=== PATIENT | female | born 1995 | race Caucasian/White ===

== ENCOUNTER 2025-06-23 17:59 | Inpatient (IN) | payer OTHER ==
[2025-06-23 18:58] VITALS: BMI 28.4
[2025-06-23] MEDS ORDERED: Tranexamic Acid 1,000 MG/10 ML VIAL IVP PRN (19:09)
[2025-06-23] MEDS ORDERED: Diphenoxylate HCl/Atropine Tablet PO PRN ×2 (19:09)
[2025-06-23] MEDS ORDERED: Ondansetron PF 4 MG/2 ML Vial IVP PRN ×4 (19:09→21:13)
[2025-06-23] MEDS ORDERED: Methylergonovine 0.2 MG/ML VIAL IM PRN (19:09)
[2025-06-23] MEDS ORDERED: Famotidine/PF 20 mg/2ml Vial SLOW IVP PRN (19:09)
[2025-06-23] MEDS ORDERED: hydrALAZINE 20 MG/ML VIAL SLOW IVP PRN ×2 (19:09→21:13)
[2025-06-23] MEDS ORDERED: Bicitra 30 ML UDCUP PO PRN (19:09)
[2025-06-23] MEDS ORDERED: Carboprost 250 MCG/ML AMP IM PRN (19:09)
[2025-06-23 19:15] LABS: Fetal Membranes Rupture RUPTURE DETECTED (No Rupture)
[2025-06-23] MEDS ORDERED: Azithromycin 500 MG in Sodium Chloride 0.9% 250 ML 250 ML IVPB SCH (19:15)
[2025-06-23] MEDS ORDERED: Oxytocin 30 units/NS 500 ML 500 ML IV SCH ×2 (19:15→21:15)
[2025-06-23 19:46] LABS: Hematocrit 33.2 % (34.9-44.5); Hemoglobin 11.2 g/dL (12.0-15.5); Mean Corpuscular Hemoglobin 27.9 pg (27.0-33.0); Mean Corpuscular Volume 82.8 fL (81.6-98.3); Platelet Count 192 10x3/uL (150-450); Red Blood Cell (RBC) Count 4.01 10x6/uL (3.90-5.03); White Blood Cell (WBC) Count 12.12 10x3/uL (3.5-10.5)
[2025-06-23] MEDS ORDERED: HYDROmorphone 0.5 MG/0.5 ML SYRINGE SLOW IVP PRN (20:00)
[2025-06-23] MEDS ORDERED: diphenhydrAMINE 50 MG/ML VIAL IVP PRN (20:00)
[2025-06-23] MEDS ORDERED: Communication Order-Pharmacy FS SCH (20:00)
[2025-06-23] MEDS ORDERED: Meperidine HCl/PF 25 MG (1 mL) VIAL SLOW IVP PRN (20:00)
[2025-06-23 20:42] LABS: HIV (1/2) Antibody/Antigen Non-Reactive (NonReactive); HIV 1/2 INDEX 0.18 S/CO (<1.00); Hep B Surf Ag - L&D Non-Reactive S/CO (NonReactive)
[2025-06-23 20:43] LABS: Syphilis Antibody Index 0.07 S/CO (<1.00 Non-Reactive)
[2025-06-23] MEDS: Ketorolac Tromethamine 30 MG (1 mL) VIAL IVP SCH (22:05)
[2025-06-23] MEDS ORDERED: HYDROcodone/Acetaminophen 10/325 mg Tablet PO PRN (22:07)
[2025-06-23] MEDS ORDERED: Ketorolac Tromethamine 30 MG (1 mL) VIAL IVP PRN (23:30)
[2025-06-24] MEDS: Dexamethasone 10 MG/ML VIAL ONE (00:25)
[2025-06-24] MEDS: Ondansetron PF 4 MG/2 ML Vial ONE (00:26)
[2025-06-24] MEDS: Phenylephrine 40 MG/NS 250 ML 250 ML ONE (00:26)
[2025-06-24] MEDS: Erythromycin Base 0.5% Oint 1 GM TUBE ONE (00:27)
[2025-06-24] MEDS: Oxytocin 10 UNITS/ML VIAL ONE ×2 (00:27→00:28)
[2025-06-24] MEDS: Methylergonovine 0.2 MG TAB PO SCH (01:44)
[2025-06-24] MEDS: diphenhydrAMINE 25 MG CAP PO PRN (02:36)
[2025-06-24 03:39] LABS: Hematocrit 32.0 % (34.9-44.5); Hemoglobin 10.4 g/dL (12.0-15.5); Mean Corpuscular Hemoglobin 27.7 pg (27.0-33.0); Mean Corpuscular Volume 85.3 fL (81.6-98.3); Platelet Count 171 10x3/uL (150-450); Red Blood Cell (RBC) Count 3.75 10x6/uL (3.90-5.03); White Blood Cell (WBC) Count 17.41 10x3/uL (3.5-10.5)
[2025-06-24] MEDS: Ketorolac Tromethamine 30 MG (1 mL) VIAL IVP SCH (04:28)
[2025-06-24] MEDS: Hepatitis B Vaccine 10 MCG/0.5 ML SYR ONE (07:18)
[2025-06-24] MEDS: HYDROcodone/Acetaminophen 10/325 mg Tablet PO PRN (11:52)
[2025-06-24] MEDS: Simethicone Chewable 80 MG TAB PO PRN (11:53)
[2025-06-25] MEDS ORDERED: Ibuprofen 800 MG TAB PO SCH (05:30)
[2025-06-25] MEDS: Ibuprofen 800 MG TAB PO SCH (07:46)
[2025-06-26 07:48] VITALS: BP 104/57; TEMP 98.3
== END 2025-06-26 11:35 | disposition home or self-care (01) | DRG 788 ==
LOC: CSHLD/OP 17:59 → CSHLD 18:58 → CSHPED 23:16
PROVIDERS: ADMIT Obstetrics & Gynecology; ATTEND Obstetrics & Gynecology
PROC: 10D00Z1 Extraction of Products of Conception, Low, Open Approach (ICD-10-PCS; principal; 2025-06-23)
PROC: 3E03329 Introduction of Other Anti-infective into Peripheral Vein, Percutaneous Approach (ICD-10-PCS; 2025-06-23)
DX: O32.1XX0 Maternal care for breech presentation, not applicable or unspecified (principal); Z3A.38 38 weeks gestation of pregnancy; Z37.0 Single live birth; Z79.899 Other long term (current) drug therapy; F41.9 Anxiety disorder, unspecified; K21.9 Gastro-esophageal reflux disease without esophagitis; O99.344 Other mental disorders complicating childbirth; O99.62 Diseases of the digestive system complicating childbirth; Z88.8 Allergy status to other drugs, medicaments and biological substances
CPT/HCPCS: 36415; 51702; 84112; 85027; 86780; 86850; 86900; 86901; 87340; 87389; 99285; J1100; J1885; J2250; J2274; J2405; J2590; J3010